=== PATIENT | female | born 1995 | race African-American/Black ===

== ENCOUNTER 2017-03-16 01:04 | Emergency (ER) | payer SELFPAY ==
[~2017-03-16] VITALS: Ht 162.6 cm; Wt 59.0 kg
[~2017-03-16 01:04] MED LIST: SULF1TAB24 PO
[2017-03-16 01:18] VITALS: BP 170/111
[2017-03-16 02:14] LABS: BASO % 0 % (0-3); EOS % 1 % (0-3); HEMATOCRIT 34.6 % (36.0-47.0); HEMOGLOBIN 11.2 g/dL (12.0-15.5); LYMPH # 2.4 x10^3/uL (1.0-4.8); LYMPH % 31 % (24-48); MEAN CORPUSCULAR HEMOGLOBIN 26 pg (25-35); MEAN CORPUSCULAR HGB CONC 32 g/dL (31-37); MEAN CORPUSCULAR VOLUME 80 fL (79-100); MONO % 7 % (0-9); NEUT % 61 % (31-73); PLATELET COUNT 271 x10^3/uL (140-400); RED BLOOD COUNT 4.35 x10^6/uL (3.50-5.40); RED CELL DISTRIBUTION WIDTH 15.6 % (11.5-14.5); WHITE BLOOD COUNT 7.8 x10^3/uL (4.0-11.0)
[2017-03-16 02:26] LABS: CALCIUM 8.6 mg/dL (8.5-10.1); CREATININE 0.7 mg/dL (0.6-1.0)
[2017-03-16 02:27] LABS: GFR 127.8; POTASSIUM 3.7 mmol/L (3.5-5.1)
[2017-03-16] MEDS ORDERED: IOHEXOL 300 MG/ML 75 ML VIAL IV ONE (03:00)
[2017-03-16] MEDS ORDERED: CONTRAST GIVEN MC PRN (03:00)
--- NOTE | 2017-03-16 03:27 | RAD ---
PROCEDURE CT pelvis with contrast 03/16/2017. HISTORY Rectal pain off and on for year. History of abscess. TECHNIQUE Images were obtained through the pelvis after injection of 75 milliliters Omnipaque 300. No oral contrast was given. Exposure: One or more of the following individualized dose reduction techniques were utilized for this exam: 1. Automated exposure control. 2. Adjustment of the mA and/or kV according to patient size. 3. Use of iterative reconstruction technique. COMPARISON FINDINGS No abnormality is seen involving the distal ureters or bladder. The bladder was not well distended for the exam. No pelvic or inguinal adenopathy is seen. No mass or inflammatory process is identified within the pelvis. Evaluation is somewhat limited by lack of oral contrast. Images through the area of the lower rectum and anus show asymmetric density in the left ischiorectal fossa extending towards the external anal sphincter. There is suggestion of continuity of this density inferiorly to the scan at the gluteal fold on the left. IMPRESSION An inflammatory process is suggested involving the distal rectum and anus on the left. There may be an associated fistula. No obvious rim enhancing fluid collection such as an abscess is seen. If further imaging evaluation is needed, MRI may be more accurate at delineating perianal disease. Electronically signed by: Spencer Aleman (Mar 16, 2017 03:25:40)
[2017-03-16] MEDS ORDERED: METR500T PO (04:15)
[2017-03-16] MEDS ORDERED: LEVO750T31 PO (04:15)
--- NOTE | 2017-03-16 04:15 | PHYS DOC ---
Past Medical History Past Medical History: Anxiety, Depression, MRSA Past Surgical History: No Surgical History Alcohol Use: None Drug Use: None Adult General Chief Complaint Chief Complaint: ABSCESS HPI HPI Patient is a 21 year old female who presents with rectal pain. The patient reports 1 year history of rectal pain, states she has been diagnosed with abscess & needs surgery but has never followed up. States over the past week she has had increased pain around her anus & in her rectum, worse with bowel movements. Denies fevers/chills, nausea, vomiting, abdominal pain, hematochezia /melena. PCP is Dr. Gould. Review of Systems Review of Systems Constitutional: Denies fever or chills HENT: Denies nasal congestion or sore throat Respiratory: Denies cough or shortness of breath Cardiovascular: Denies chest pain GI: Denies abdominal pain, nausea, vomiting, bloody stools or diarrhea. Reports rectal pain. : Denies dysuria or hematuria Musculoskeletal: Denies back pain or joint pain Integument: Denies rash Neurologic: Denies headache Current Medications Current Medications Current Medications Medications (Trade) Dose Ordered Sig/Sukhjinder Start Time Stop Time Status Last Admin Dose Admin Info (Do NOT chart on this entry -- for MONITORING) 1 each PRN DAILY PRN 03/16/17 03:00 03/16/17 04:22 DC Iohexol (Omnipaque 300 Mg/ml) 75 ml 1X ONCE 03/16/17 03:00 03/16/17 03:01 DC 03/16/17 03:12 75 ML Allergies Allergies Allergies Coded Allergies Type Severity Reaction Last Updated Verified diphenhydramine Allergy Intermediate hives 07/28/15 Yes hydrocodone Adverse Reaction Intermediate nausea 07/28/15 Yes amoxicillin Adverse Reaction Mild yeast infection 07/28/15 Yes Physical Exam Physical Exam Constitutional: Well developed, well nourished, no acute distress, non-toxic appearance. HENT: Normocephalic, atraumatic, bilateral external ears normal, oropharynx moist, nose normal. Eyes: conjunctiva normal, no discharge. Neck: supple, no stridor. Cardiovascular: RRR, no murmurs, no edema. Lungs & Thorax: LCTAB, no wheezing, no respiratory distress. Abdomen: soft, nontender, nondistended. Rectal: no erythema or warmth, no fluctuance or induration about the anus or upon rectal exam, but there is perineal & rectal tenderness with palpation. Skin: Warm, dry, no erythema, no rash. Back: No tenderness. Extremities: No tenderness, no edema. Neurologic: Alert and oriented X 3 Current Patient Data Vital Signs Vital Signs Date Time Temp Pulse Resp B/P Pulse Ox O2 Delivery O2 Flow Rate FiO2 03/16/17 01:18 97.8 71 18 98 Room Air 97.8 Lab Values Laboratory Tests Test 03/16/17 01:45 03/16/17 02:04 POC Urine HCG, Qualitative Hcg negative (Negative) White Blood Count 7.8x10^3/uL (4.0-11.0) Red Blood Count 4.35x10^6/uL (3.50-5.40) Hemoglobin 11.2g/dL (12.0-15.5) L Hematocrit 34.6% (36.0-47.0) L Mean Corpuscular Volume 80fL (79-100) Mean Corpuscular Hemoglobin 26pg (25-35) Mean Corpuscular Hemoglobin Concent 32g/dL (31-37) Red Cell Distribution Width 15.6% (11.5-14.5) H Platelet Count 271x10^3/uL (140-400) Neutrophils (%) (Auto) 61% (31-73) Lymphocytes (%) (Auto) 31% (24-48) Monocytes (%) (Auto) 7% (0-9) Eosinophils (%) (Auto) 1% (0-3) Basophils (%) (Auto) 0% (0-3) Neutrophils # (Auto) 4.7x10^3uL (1.8-7.7) Lymphocytes # (Auto) 2.4x10^3/uL (1.0-4.8) Monocytes # (Auto) 0.5x10^3/uL (0.0-1.1) Eosinophils # (Auto) 0.1x10^3/uL (0.0-0.7) Basophils # (Auto) 0.0x10^3/uL (0.0-0.2) Sodium Level 141mmol/L (136-145) Potassium Level 3.7mmol/L (3.5-5.1) Chloride Level 106mmol/L (98-107) Carbon Dioxide Level 27mmol/L (21-32) Anion Gap 8 (6-14) Blood Urea Nitrogen 10mg/dL (7-20) Creatinine 0.7mg/dL (0.6-1.0) Estimated GFR (Cockcroft-Gault) 127.8 Glucose Level 95mg/dL (70-99) Calcium Level 8.6mg/dL (8.5-10.1) Laboratory Tests 03/16/17 02:04 Laboratory Tests 03/16/17 02:04 EKG EKG [] Radiology/Procedures Radiology/Procedures PROCEDURE: CT PELVIS W/CONTRAST PROCEDURE CT pelvis with contrast 03/16/2017. HISTORY Rectal pain off and on for year. History of abscess. TECHNIQUE Images were obtained through the pelvis after injection of 75 milliliters Omnipaque 300. No oral contrast was given. Exposure: One or more of the following individualized dose reduction techniques were utilized for this exam: 1. Automated exposure control. 2. Adjustment of the mA and/or kV according to patient size. 3. Use of iterative reconstruction technique. COMPARISON FINDINGS No abnormality is seen involving the distal ureters or bladder. The bladder was not well distended for the exam. No pelvic or inguinal adenopathy is seen. No mass or inflammatory process is identified within the pelvis. Evaluation is somewhat limited by lack of oral contrast. Images through the area of the lower rectum and anus show asymmetric density in the left ischiorectal fossa extending towards the external anal sphincter. There is suggestion of continuity of this density inferiorly to the scan at the gluteal fold on the left. IMPRESSION An inflammatory process is suggested involving the distal rectum and anus on the left. There may be an associated fistula. No obvious rim enhancing fluid collection such as an abscess is seen. If further imaging evaluation is needed, MRI may be more accurate at delineating perianal disease. Electronically signed by: Kamran Aleman (Mar 16, 2017 03:25:40) DICTATED and SIGNED BY: KAMRAN ALEMAN Jr, MD DATE: 03/16/17 0325[] Course & Med Decision Making Course & Med Decision Making Pertinent Labs and Imaging studies reviewed. (See chart for details) The patient presents with rectal pain, states history of abscess. Afebrile, no apparent abscess on exam but she does have significant tenderness. WBC normal. Obtained CT which demonstrates inflammation without focal abscess, as well as suspected fistula. The patient did not require pain medication in the emergency department & was interested in outpatient management if possible. DIscussed with Dr. Shah who agrees no need for admission, recommends levaquin & flagyl (patient has amoxicillin allergy), follow up in general surgery clinic in 2 days. Come back for high fever, severe pain, uncontrolled vomiting, erythema/warmth/swelling, any otherwise worsening condition. Discharged home in stable condition. [] Dragon Disclaimer Dragon Disclaimer This electronic medical record was generated, in whole or in part, using a voice recognition dictation system. Departure Departure Impression: Primary Impression: Rectal pain Additional Impressions: Perirectal inflammation Anal fistula Disposition: HOME, SELF-CARE Condition: STABLE Referrals: JUSTINO SHAH MD Patient Instructions: Anal Fistula Additional Instructions: You were seen in the emergency department today for rectal pain. The CT scan showed possible fistula & inflammation. Please soak in a warm bathtub for comfort. Take the prescribed antibiotics. Follow up with Dr. Shah in the general surgery clinic; please call for an appointment. Come back for high fever, severe pain, uncontrolled vomiting, new redness/warmth/swelling around your anus, or any otherwise worsening condition. Scripts Metronidazole (Flagyl)500 Mg Tablet1 Tab PO TID #21 TAB Prov:EDUIN MIKE MD 03/16/17 Levofloxacin (Levaquin)750 Mg Tablet1 Tab PO DAILY #7 TAB Prov:EDUIN MIKE MD 03/16/17 Problem Qualifiers EDUIN MIKE MD Mar 16, 2017 04:15
== END 2017-03-16 04:22 | disposition home or self-care (01) ==
LOC: ER 01:04
DX: K62.89 Other specified diseases of anus and rectum (principal); K60.3 Anal fistula; F41.9 Anxiety disorder, unspecified; F32.9 Major depressive disorder, single episode, unspecified; Z88.0 Allergy status to penicillin; Z88.5 Allergy status to narcotic agent; Z88.8 Allergy status to other drugs, medicaments and biological substances
CPT/HCPCS: 36415; 74170; 80048; 84703; 85027; 99285; Q9967; 81025

== ENCOUNTER 2021-07-14 09:33 | Emergency (ER) | payer SELFPAY ==
[~2021-07-14] VITALS: Ht 162.6 cm; Wt 77.0 kg
[~2021-07-14 09:33] MED LIST changes: +LEVO750T31 PO; +METR500T PO
[2021-07-14 09:55] VITALS: BP 144/95
[2021-07-14] MEDS ORDERED: cefTRIAXone IM 500 MG VIAL. IM ONE (10:15)
--- NOTE | 2021-07-14 10:22 | PHYS DOC ---
Past Medical History Past Medical History: Anxiety, Depression, MRSA Past Surgical History: No Surgical History Smoking Status: Current Every Day Smoker Alcohol Use: None Drug Use: None General Adult EDM: Chief Complaint: SEXUALLY TRANSMITTED DISEASE HPI: HPI: Patient is a 26 year old female who presents with states for the last 4 days she has had foul-smelling vaginal discharge that is white. She states that there is a chance that she could have an STD she would like to be checked and treated. She also states that back in July she injured her knee and her LCL was torn. She states she does have an orthopedic. She states she never got it fixed. She states that she was walking the other day and it locked up on her and so she wants a x-ray of her right knee. She has a history of anxiety, depression, smoker, MRSA. She denies any pain at this time. She denies abdominal pain, chest pain, shortness of breath, fever, cough, nausea, vomiting, back pain, urinary symptoms, dizziness, headache. Review of Systems: Review of Systems: Constitutional: Denies fever or chills. [] Eyes: Denies change in visual acuity. [] HENT: Denies nasal congestion or sore throat. [] Respiratory: Denies cough or shortness of breath. [] Cardiovascular: Denies chest pain or edema. [] GI: Denies abdominal pain, nausea, vomiting, bloody stools or diarrhea. [] : Denies dysuria. + Vaginal discharge [] Musculoskeletal: Denies back pain or + right knee joint pain. [] Integument: Denies rash. [] Neurologic: Denies headache, focal weakness or sensory changes. [] Endocrine: Denies polyuria or polydipsia. [] Lymphatic: Denies swollen glands. [] Psychiatric: Denies depression or anxiety. [] Heart Score: C/O Chest Pain: No Risk Factors: Risk Factors: DM, Current or recent (<one month) smoker, HTN, HLP, family history of CAD, obesity. Risk Scores: Score 0 - 3: 2.5% MACE over next 6 weeks - Discharge Home Score 4 - 6: 20.3% MACE over next 6 weeks - Admit for Clinical Observation Score 7 - 10: 72.7% MACE over next 6 weeks - Early Invasive Strategies Allergies: Allergies: Allergies Coded Allergies Type Severity Reaction Last Updated Verified Penicillins Allergy Intermediate Hives 8/21/21 Yes diphenhydramine Allergy Intermediate hives 07/28/15 Yes sulfamethoxazole Allergy Intermediate Hives 07/14/21 Yes trimethoprim Allergy Intermediate Hives 07/14/21 Yes hydrocodone Adverse Reaction Intermediate nausea 07/28/15 Yes amoxicillin Adverse Reaction Mild yeast infection 07/28/15 Yes Physical Exam: PE: Constitutional: Well developed, well nourished, no acute distress, non-toxic appearance. [] HENT: Normocephalic, atraumatic, bilateral external ears normal, oropharynx moist, no oral exudates, nose normal. [] Eyes: PERRLA, EOMI, conjunctiva normal, no discharge. [] Neck: Normal range of motion, no tenderness, supple, no stridor. [] Cardiovascular:Heart rate regular rhythm, no murmur [] Lungs & Thorax: Bilateral breath sounds clear to auscultation [] Abdomen: Bowel sounds normal, soft, no tenderness, no masses, no pulsatile masses. [] Skin: Warm, dry, no erythema, no rash. [] Back: No tenderness, no CVA tenderness. [] Extremities: No tenderness, no cyanosis, no clubbing, ROM intact, no edema. [] Neurologic: Alert and oriented X 3, normal motor function, normal sensory function, no focal deficits noted. [] Psychologic: Affect normal, judgement normal, mood normal. [] Normal physical exam Current Patient Data: Vital Signs: Vital Signs Date Time Temp Pulse Resp B/P (MAP) Pulse Ox O2 Delivery O2 Flow Rate FiO2 07/14/21 09:55 98.7 108 12 144/95 (130) 100 Room Air 98.7 EKG: EKG: [] Radiology/Procedures: Radiology/Procedures: [] Impression: [id number] [place], [place] [id number] IMAGING REPORT Signed PATIENT: NIALL LO DACCOUNT: [id number] : 1995 LOCATION: ER AGE: 26 SEX: F EXAM STATUS: REG ER ORD. PHYSICIAN: SILVIA DOWNEY SENIOR SOURCING MANAGER REASON: KNEE PAIN PROCEDURE: KNEE RIGHT 4V XR KNEE 4 VIEWS WITH PATELLA_RT History: Reason: KNEE PAIN / Spl. Instructions: / History: Technique: 4 views right knee. Comparison: None. Findings: Normal alignment. No acute fracture. No significant knee joint effusion. Impression: 1. No acute osseous abnormality. Electronically signed by: Hugo Shelton DO (07/14/2021 11:27 AM) [id number] DICTATED and SIGNED BY: HUGO SHELTON DO DATE: 07/14/21 [id number] 0 Course & Med Decision Making: Course & Med Decision Making Pertinent Labs and Imaging studies reviewed. (See chart for details) See HPI. Alert and oriented x4. Ambulatory with a steady gait. Full range of motion of her right knee. There is no swelling or deformity. Popliteal pulses strong present. Abdomen is soft and nontender. Skin pink warm and dry. Speaks in full complete sentences. Afebrile. 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 Departure Departure Impression: Primary Impression: Concern about STD in female without diagnosis Additional Impression: Knee pain, right Qualified Codes: M25.561 - Pain in right knee; G89.29 - Other chronic pain Disposition: HOME / SELF CARE / HOMELESS Condition: STABLE Referrals: RUDI LIVINGSTON DO (PCP) PAWAN DERAS MD Patient Instructions: Sexually Transmitted Diseases-SportsMed Additional Instructions: Follow-up with your orthopedic doctor. Take medication as prescribed and with food. Drink plenty of fluids. Have your sexual partners treated. Your results will be back in 48 hours and you will be called only if you are positive. Scripts Doxycycline Hyclate (DOXYCYCLINE HYCLATE) 100 Mg Capsule 1 CAP PO BID, #20 CAP Prov: SILVIA DOWNEY APRN 07/14/21 SILVIA DOWNEY APRN Jul 14, 2021 10:22
[2021-07-14 10:26] LABS: BILIRUBIN,URINE NEGATIVE (NEG); CLARITY,URINE CLOUDY; COLOR,URINE YELLOW; NITRITE,URINE NEGATIVE (NEG); PROTEIN,URINE NEGATIVE (NEG-TRACE); UROBILINOGEN,URINE 0.2 mg/dL (0.2 mg/dL)
[2021-07-14 10:31] LABS: U PREG PATIENT NEGATIVE (NEG)
[2021-07-14 10:36] LABS: BACTERIA,URINE FEW /HPF (0-FEW); RBC,URINE 0 /HPF (0-2)
--- NOTE | 2021-07-14 11:29 | RAD ---
XR KNEE 4 VIEWS WITH PATELLA_RT History: Reason: KNEE PAIN / Spl. Instructions: / History: Technique: 4 views right knee. Comparison: None. Findings: Normal alignment. No acute fracture. No significant knee joint effusion. Impression: 1. No acute osseous abnormality. Electronically signed by: Hugo Shelton DO (07/14/2021 11:27 AM) [id number]
[2021-07-14] MEDS ORDERED: DOXY100C3 PO (11:36)
[2021-07-16 19:13] LABS: GC PROBE Negative (Negative)
== END 2021-07-14 11:53 | disposition home or self-care (01) ==
LOC: ER 09:33
DX: Z20.2 Contact with and (suspected) exposure to infections with a predominantly sexual mode of transmission (principal); M25.561 Pain in right knee; G89.29 Other chronic pain; N89.8 Other specified noninflammatory disorders of vagina; F17.200 Nicotine dependence, unspecified, uncomplicated; F41.9 Anxiety disorder, unspecified; F32.9 Major depressive disorder, single episode, unspecified; Z86.14 Personal history of Methicillin resistant Staphylococcus aureus infection; Z88.0 Allergy status to penicillin; Z88.1 Allergy status to other antibiotic agents; Z88.2 Allergy status to sulfonamides; Z88.5 Allergy status to narcotic agent
CPT/HCPCS: 73564; 81001; 81025; 87491; 87591; 96372; 99284; J0696; Q0111